=== PATIENT | female | born 1945 | race Caucasian/White ===

== ENCOUNTER → 2016-05-14 | Outpatient (CLI) | payer BC, MEDICARE ==
--- NOTE | 2016-05-14 13:49 | MM ---
Reason for exam: follow-up at short interval from prior study. Last mammogram was performed 7 months ago. History: Patient is postmenopausal, has history of high-risk lesion on a previous biopsy at age 68, and is nulliparous. Benign MG stereo VAD BX RT of the right breast, November 03, 2014. High risk MG stereo VAD BX RT of the right breast, November 09, 2013. Physical Findings: Nurse did not find any significant physical abnormalities on exam. MG 3D Diag Mammo W/Cad LT CC and MLO view(s) were taken of the left breast. Prior study comparison: October 27, 2015, bilateral MG 3d diag mammo w/cad [facility]. October 25, 2014, bilateral MG diagnostic mammo w CAD [facility]. There are scattered fibroglandular densities. Finding: There is a typically benign 3 mm equal density (isodense), oval mass in the left breast, 4 cm from the nipple. No significant changes in finding since October 27, 2015 and October 25, 2014. These results were verbally communicated with the patient and result sheet given to the patient on 05/14/16. ASSESSMENT: Benign, BI-RAD 2 RECOMMENDATION: Routine screening mammogram of both breasts in 6 months. Back on schedule for October 2016.
== END | disposition home or self-care (01) ==
LOC: RADMAMWWP 13:16
PROVIDERS: ATTEND Internal Medicine
DX: R92.8 Other abnormal and inconclusive findings on diagnostic imaging of breast (principal)
CPT/HCPCS: G0206; G0279

== ENCOUNTER → 2016-11-07 | Outpatient (CLI) | payer BC, MEDICARE ==
--- NOTE | 2016-11-08 08:54 | MM ---
Reason for exam: screening (asymptomatic). Last mammogram was performed 6 months ago. History: Patient is postmenopausal, has history of high-risk lesion on a previous biopsy at age 68, and is nulliparous. Benign MG stereo VAD BX RT of the right breast, November 03, 2014. High risk MG stereo VAD BX RT of the right breast, November 09, 2013. Physical Findings: A clinical breast exam by your physician is recommended on an annual basis and results should be correlated with mammographic findings. MG 3D Screening Mammo W/Cad Bilateral CC and MLO view(s) were taken. Prior study comparison: May 14, 2016, left breast MG 3d diag mammo w/cad LT. October 27, 2015, bilateral MG 3d diag mammo w/cad [facility]. The breast tissue is heterogeneously dense. This may lower the sensitivity of mammography. Stable benign calcifications. There is no discrete abnormality. No significant changes when compared with prior studies. ASSESSMENT: Benign, BI-RAD 2 RECOMMENDATION: Routine screening mammogram of both breasts in 1 year.
== END | disposition home or self-care (01) ==
LOC: RADMAMWWP 07:21
PROVIDERS: ATTEND Internal Medicine
DX: Z12.31 Encounter for screening mammogram for malignant neoplasm of breast (principal)
CPT/HCPCS: 77063; G0202

== ENCOUNTER → 2017-11-08 | Outpatient (CLI) | payer BC, MEDICARE ==
--- NOTE | 2017-11-11 12:27 | MM ---
Reason for exam: screening (asymptomatic). Last mammogram was performed 1 year ago. History: Patient is postmenopausal, has history of high-risk lesion on a previous biopsy at age 68, and is nulliparous. Benign MG stereo VAD BX RT of the right breast, November 03, 2014. High risk MG stereo VAD BX RT of the right breast, November 09, 2013. Physical Findings: A clinical breast exam by your physician is recommended on an annual basis and results should be correlated with mammographic findings. MG 3D Screening Mammo W/Cad Bilateral CC and MLO view(s) were taken. Prior study comparison: November 07, 2016, bilateral MG 3d screening mammo w/cad. May 14, 2016, left breast MG 3d diag mammo w/cad LT. There are scattered fibroglandular densities. Finding: There is a 4 mm equal density (isodense), oval mass located 4 cm from the nipple in the middle position of the left breast. Previous mammotome biopsy in the right breast x 2. New finding since November 07, 2016 and May 14, 2016. ASSESSMENT: Incomplete: need additional imaging evaluation, BI-RAD 0 RECOMMENDATION: Ultrasound of the left breast. [facility] will attempt to contact patient to return for ultrasound.
== END | disposition home or self-care (01) ==
LOC: RADMAMWWP 08:28
PROVIDERS: ATTEND Internal Medicine
DX: Z12.31 Encounter for screening mammogram for malignant neoplasm of breast (principal); Z80.3 Family history of malignant neoplasm of breast
CPT/HCPCS: 77063; 77067

== ENCOUNTER → 2017-11-14 | Outpatient (CLI) | payer BC, MEDICARE ==
--- NOTE | 2017-11-14 09:28 | USB ---
Reason for exam: additional evaluation requested from abnormal screening. History: Patient is postmenopausal, has history of high-risk lesion on a previous biopsy at age 68, and is nulliparous. Benign MG stereo VAD BX RT of the right breast, November 03, 2014. High risk MG stereo VAD BX RT of the right breast, November 09, 2013. Physical Findings: Nurse did not find any significant physical abnormalities on exam. US Breast Workup LT Left limited breast ultrasound including focal area of concern, retroareolar and axilla demonstrates a 0.4 x 0.3 x 0.4cm mixed lesion at 6:30. These results were verbally communicated with the patient and result sheet given to the patient on 11/14/17. ASSESSMENT: Probably benign, BI-RAD 3 RECOMMENDATION: Follow-up diagnostic mammogram and ultrasound of the left breast in 6 months.
== END | disposition home or self-care (01) ==
LOC: RADUSWWP 06:48
PROVIDERS: ATTEND Internal Medicine
DX: R92.8 Other abnormal and inconclusive findings on diagnostic imaging of breast (principal)

== ENCOUNTER → 2018-05-19 | Outpatient (CLI) | payer BC, MEDICARE ==
--- NOTE | 2018-05-20 09:55 | MM ---
Reason for exam: follow-up at short interval from prior study. Last mammogram was performed 6 months ago. History: Patient is postmenopausal, has history of high-risk lesion on a previous biopsy at age 68, and is nulliparous. Benign MG stereo VAD BX RT of the right breast, November 03, 2014. High risk MG stereo VAD BX RT of the right breast, November 09, 2013. Physical Findings: Nurse did not find any significant physical abnormalities on exam. MG 3D Diag Mammo W/Cad LT CC and MLO view(s) were taken of the left breast. Prior study comparison: November 08, 2017, bilateral MG 3d screening mammo w/cad. November 07, 2016, bilateral MG 3d screening mammo w/cad. There are scattered fibroglandular densities. Stable benign calcifications. Stable nodule left breast. These results were verbally communicated with the patient and result sheet given to the patient on 05/19/18. ASSESSMENT: Probably benign, BI-RAD 3 RECOMMENDATION: Follow-up diagnostic mammogram of both breasts in 6 months.
--- NOTE | 2018-05-20 09:57 | USB ---
Reason for exam: follow-up at short interval from prior study. History: Patient is postmenopausal, has history of high-risk lesion on a previous biopsy at age 68, and is nulliparous. Benign MG stereo VAD BX RT of the right breast, November 03, 2014. High risk MG stereo VAD BX RT of the right breast, November 09, 2013. US Breast LT Left complete breast ultrasound includes all four quadrants, the retroareolar region and axilla. Finding demonstrates a 0.5 x 0.4 x 0.5cm lesion too small to characterize at 7 o'clock. These results were verbally communicated with the patient and result sheet given to the patient on 05/19/18. ASSESSMENT: Probably benign, BI-RAD 3 RECOMMENDATION: Follow-up diagnostic mammogram of both breasts in 6 months. Ultrasound of the left breast in 6 months.
== END | disposition home or self-care (01) ==
LOC: RADMAMWWP 08:21
PROVIDERS: ATTEND Internal Medicine
DX: R92.8 Other abnormal and inconclusive findings on diagnostic imaging of breast (principal)
CPT/HCPCS: 77061; 77065

== ENCOUNTER → 2018-11-10 | Outpatient (CLI) | payer BC, MEDICARE ==
--- NOTE | 2018-11-11 08:59 | MM ---
Reason for exam: follow-up at short interval from prior study. Last mammogram was performed 6 months ago. History: Patient is postmenopausal, has history of high-risk lesion on a previous biopsy at age 68, and is nulliparous. Benign MG stereo VAD BX RT of the right breast, November 03, 2014. High risk MG stereo VAD BX RT of the right breast, November 09, 2013. Physical Findings: Nurse did not find any significant physical abnormalities on exam. MG 3D Diag Mammo W/Cad [facility] Bilateral CC and MLO view(s) were taken. Prior study comparison: May 19, 2018, left breast MG 3d diag mammo w/cad LT. November 08, 2017, bilateral MG 3d screening mammo w/cad. The breast tissue is heterogeneously dense. This may lower the sensitivity of mammography. Stable benign calcifications. Previous mammotome biopsy in the right breast. No significant new findings when compared with previous films. These results were verbally communicated with the patient and result sheet given to the patient on 11/10/18. ASSESSMENT: Benign, BI-RAD 2 RECOMMENDATION: Routine screening mammogram of both breasts in 1 year.
== END | disposition home or self-care (01) ==
LOC: RADMAMWWP 06:41
PROVIDERS: ATTEND Internal Medicine
DX: R92.8 Other abnormal and inconclusive findings on diagnostic imaging of breast (principal)
CPT/HCPCS: 77062; 77066

== ENCOUNTER → 2019-11-11 | Outpatient (CLI) | payer BC, MEDICARE ==
--- NOTE | 2019-11-11 10:59 | MM ---
Reason for exam: screening (asymptomatic). Last mammogram was performed 1 year ago. History: Patient is postmenopausal, has history of high-risk lesion on a previous biopsy at age 68, and is nulliparous. Benign MG stereo VAD BX RT of the right breast, November 03, 2014. High risk MG stereo VAD BX RT of the right breast, November 09, 2013. Took hormonal contraceptives for 1 year. Physical Findings: A clinical breast exam by your physician is recommended on an annual basis and results should be correlated with mammographic findings. MG 3D Screening Mammo W/Cad Bilateral CC and MLO view(s) were taken. Prior study comparison: November 10, 2018, bilateral MG 3d diag mammo w/cad [facility]. May 19, 2018, left breast MG 3d diag mammo w/cad LT. There are scattered fibroglandular densities. There are benign appearing round calcifications bilaterally. There is chronic nodularity bilaterally, greater in the left breast. There is no discrete abnormality. ASSESSMENT: Benign, BI-RAD 2 RECOMMENDATION: Routine screening mammogram of both breasts in 1 year.
== END | disposition home or self-care (01) ==
LOC: RADMAMWWP 08:37
PROVIDERS: ATTEND Internal Medicine
DX: Z12.31 Encounter for screening mammogram for malignant neoplasm of breast (principal)
CPT/HCPCS: 77063; 77067

== ENCOUNTER → 2020-09-28 | Outpatient (CLI) | payer BC, MEDICARE ==
--- NOTE | 2020-09-28 14:16 | MM ---
Reason for exam: screening (asymptomatic). Last mammogram was performed 11 months ago. History: Patient is postmenopausal, has history of high-risk lesion on a previous biopsy at age 68, and is nulliparous. Benign MG stereo VAD BX RT of the right breast, November 03, 2014. High risk MG stereo VAD BX RT of the right breast, November 09, 2013. Took hormonal contraceptives for 1 year. Physical Findings: A clinical breast exam by your physician is recommended on an annual basis and results should be correlated with mammographic findings. MG 3D Screening Mammo W/Cad Bilateral CC and MLO view(s) were taken. CV view(s) were taken of the left breast. Prior study comparison: November 11, 2019, bilateral MG 3d screening mammo w/cad. November 10, 2018, bilateral MG 3d diag mammo w/cad [facility]. May 19, 2018, left breast MG 3d diag mammo w/cad LT. There are scattered fibroglandular densities. There are benign appearing round linear calcifications bilaterally. Previous mammotome biopsy in the right breast x 2. There is chronic nodularity in the left breast. There is no discrete abnormality. ASSESSMENT: Benign, BI-RAD 2 RECOMMENDATION: Routine screening mammogram of both breasts in 1 year.
== END | disposition home or self-care (01) ==
LOC: RADMAMWWP 07:25
PROVIDERS: ATTEND Family Medicine
DX: Z12.31 Encounter for screening mammogram for malignant neoplasm of breast (principal); Z78.0 Asymptomatic menopausal state
CPT/HCPCS: 77063; 77067

== ENCOUNTER 2020-11-09 11:05 | Day surgery (SDC) | payer BC, MEDICARE ==
[2020-11-08 08:19] VITALS: BMI 30.9
[~2020-11-09 11:05] MED LIST: LACTATED RINGERS 1,000 ML IV SCH; LIDOCAINE 1% (10MG/ML) FOR IV START INTRADERMA PRN
[2020-11-09 11:43] VITALS: TEMP 98.7
[2020-11-09] MEDS ORDERED: PROPOFOL 10 MG/ML 20 ML VIAL IV ONE (12:28)
--- NOTE | 2020-11-09 12:42 | P.PCN ---
Date of Procedure: 11/09/20 Procedure(s) Performed: BRIEF HISTORY: Patient is a 75-year-old pleasant white female scheduled for an elective colonoscopy as a part of screening for colon rectal neoplasia. PROCEDURE PERFORMED: Colonoscopy with biopsy. PREOPERATIVE DIAGNOSIS: Screening for colon cancer. IV sedation per Anesthesia. PROCEDURE: After informed consent was obtained, the patient, was brought into the endoscopy unit. IV sedation was administered by Anesthesia under continuous monitoring. Digital rectal examination was normal. Initially the Olympus CF-160 flexible video colonoscope was then inserted in the rectum, gradually advanced into the cecum without any difficulty. Careful examination was performed as the scope was gradually being withdrawn. Ileocecal valve and the appendiceal orifice were visualized and appeared normal. Prep was excellent. Mucosa of the cecum, appeared normal. In the Ascending colon there was a 3 mm polyp that was removed by cold biopsy. Rest of the ascending colon, transverse colon, descending colon, sigmoid colon, and rectum appeared normal. Retroflexion was performed in the rectum and no lesions were seen. The patient tolerated the procedure well. IMPRESSION: 3 mm ascending colon polyp status post biopsy Rest of the colon appeared normal RECOMMENDATIONS: Findings of this examination were discussed with the patient as well as his family. She was advised to follow with the biopsy results. If the biopsy reveals adenoma she can have a repeat colonoscopy in 5 years.
[2020-11-09 12:47] VITALS: RESP 16
[2020-11-09 12:56] VITALS: BP 137/86; PULSE 71
== END 2020-11-09 13:15 | disposition home or self-care (01) ==
LOC: ORWHC2ENDO 11:05
PROVIDERS: ATTEND Internal Medicine Gastroenterology
DX: Z12.11 Encounter for screening for malignant neoplasm of colon (principal); D12.2 Benign neoplasm of ascending colon; E78.5 Hyperlipidemia, unspecified; E03.9 Hypothyroidism, unspecified; Z79.890 Hormone replacement therapy; Z88.0 Allergy status to penicillin; Z88.2 Allergy status to sulfonamides
CPT/HCPCS: 45380; 45385; J2704; 88305

== ENCOUNTER → 2021-09-29 | Outpatient (CLI) | payer BC, MEDICARE ==
--- NOTE | 2021-10-02 18:41 | MM ---
Reason for Exam: Screening (asymptomatic). Last screening mammogram was performed 12 month(s) ago. Patient History: Menarche at age 14. Patient has no children. Postmenopausal. Patient used Hormonal Contraceptives for 1 year. 11/03/2014, Benign Core Biopsy on the right side. 11/09/2013, High risk Core Biopsy on the right side. Risk Values: Chelsea 5 year model risk: 2.9%. NCI Lifetime model risk: 6.7%. Prior Study Comparison: 11/10/2018 Bilateral Diagnostic Mammogram, [facility]. 11/11/2019 Bilateral Screening Mammogram, [facility]. 09/28/2020 Bilateral Screening Mammogram, [facility]. Tissue Density: There are scattered fibroglandular densities. Findings: Analyzed By CAD. A couple surgical clips right breast. Chronic nodularity central left breast. Benign vascular and secretory as well as a few scattered round/punctate calcifications in the right breast. No significant change from prior exams. Overall Assessment: Benign, BI-RAD 2 Management: Screening Mammogram of both breasts in 1 year. 1. A clinical breast exam by your physician is recommended on an annual basis and results should be correlated with mammographic findings. 2. The patient should continue monthly breast exams. 3. This exam should not preclude additional follow-up of suspicious palpable abnormalities. Electronically signed and approved by: Apoorva Ward M.D. Radiologist
== END | disposition home or self-care (01) ==
LOC: RADMAMWWP 07:24
PROVIDERS: ATTEND Family Medicine
DX: Z12.31 Encounter for screening mammogram for malignant neoplasm of breast (principal)
CPT/HCPCS: 77063; 77067

== ENCOUNTER → 2022-10-01 | Outpatient (CLI) | payer BC, MEDICARE ==
--- NOTE | 2022-10-02 14:39 | MM ---
Reason for Exam: Screening (asymptomatic). Last screening mammogram was performed 12 month(s) ago. Patient History: Menarche at age 14. Patient has no children. Postmenopausal. Patient used Hormonal Contraceptives for 1 year. 11/03/2014, Benign Core Biopsy on the right side. 11/09/2013, High risk Core Biopsy on the right side. Risk Values: Chelsea 5 year model risk: 2.9%. NCI Lifetime model risk: 6.3%. Prior Study Comparison: 11/11/2019 Bilateral Screening Mammogram, [facility]. 09/28/2020 Bilateral Screening Mammogram, [facility]. 09/29/2021 Bilateral MG 3D screening mammo w/cad, [facility]. Tissue Density: There are scattered fibroglandular densities. Findings: Analyzed By CAD. There is no suspicious group of microcalcifications within either breast. Surgical clips are identified within the right breast. Chronic nodularity within left breast. Benign-appearing calcifications within both breasts. No suspicious new mass within the left breast. Asymmetry demonstrated posteriorly centrally in the right breast only on the MLO view. This may represent a lymph node. Overall Assessment: Incomplete: need additional imaging evaluation, BI-RAD 0 Management: Diagnostic Mammogram of the right breast. A clinical breast exam by your physician is recommended on an annual basis and results should be correlated with mammographic findings. [facility] will attempt to contact patient to return for supplemental views and ultrasound if indicated. Note on Chelsea scores and lifetime risk: 1. A Chelsea score greater than 3% is considered moderate risk. If this is the case, consider specialist referral to assess eligibility for a risk reducing agent. If overall lifetime risk for the development of breast cancer is 20% or higher, the patient may qualify for future screening with alternating mammogram and breast MRI. Electronically signed and approved by: Blanco Jara D.O.
== END | disposition home or self-care (01) ==
LOC: RADMAMWWP 09:41
PROVIDERS: ATTEND Family Medicine
DX: Z12.31 Encounter for screening mammogram for malignant neoplasm of breast (principal); Z78.0 Asymptomatic menopausal state
CPT/HCPCS: 77063; 77067

== ENCOUNTER → 2022-10-05 | Outpatient (CLI) | payer BC, MEDICARE ==
--- NOTE | 2022-10-05 11:33 | USB ---
Reason for Exam: Additional evaluation requested from abnormal screening. Patient History: Menarche at age 14. Patient has no children. Postmenopausal. Patient used Hormonal Contraceptives for 1 year. 11/03/2014, Benign Core Biopsy on the right side. 11/09/2013, High risk Core Biopsy on the right side. Risk Values: Chelsea 5 year model risk: 2.9%. NCI Lifetime model risk: 6.3%. Technique: Method: Targeted. Prior Study Comparison: 09/28/2020 Bilateral Screening Mammogram, [facility]. 09/29/2021 Bilateral MG 3D screening mammo w/cad, [facility]. 10/01/2022 Bilateral MG 3D screening mammo w/cad, [facility]. Findings: The lateral section of the breast of the right breast, the axilla of the right breast and the retroareolar of the right breast were scanned. At the 8:00 position 12 cm from the nipple adjacent to the chest wall is a hypoechoic area with a hyper anechoic central core with vascularity compatible with a lymph node. This lymph node can be compatible with the finding on the mammogram and appears benign. Note is made of a prominent right axillary tail lymph node with a thickened cortex. The patient has had a recent pneumonia vaccination in the contralateral arm. Short-term follow-up in 6 months is recommended. Overall Assessment: Probably benign, BI-RAD 3 Management: Diagnostic Breast Ultrasound of the right breast in 6 months. A clinical breast exam by your physician is recommended on an annual basis and results should be correlated with mammographic findings. This exam should not preclude additional follow-up of suspicious palpable abnormalities. Results were given to the patient verbally at the time of exam. Electronically signed and approved by: Kev Deluca D.O. Radiologis
--- NOTE | 2022-10-05 17:56 | MM ---
Reason for Exam: Additional evaluation requested from abnormal screening. Last screening mammogram was performed less than 1 month ago. Patient History: Menarche at age 14. Patient has no children. Postmenopausal. Patient used Hormonal Contraceptives for 1 year. 11/03/2014, Benign Core Biopsy on the right side. 11/09/2013, High risk Core Biopsy on the right side. Risk Values: Chelsea 5 year model risk: 2.9%. NCI Lifetime model risk: 6.3%. Prior Study Comparison: 05/14/2016 Left Diagnostic Mammogram, [facility]. 11/07/2016 Bilateral Screening Mammogram, [facility]. 11/08/2017 Bilateral Screening Mammogram, [facility]. 05/19/2018 Left Diagnostic Mammogram, [facility]. 11/10/2018 Bilateral Diagnostic Mammogram, [facility]. 11/11/2019 Bilateral Screening Mammogram, [facility]. 09/28/2020 Bilateral Screening Mammogram, [facility]. 09/29/2021 Bilateral MG 3D screening mammo w/cad, [facility]. 10/01/2022 Bilateral MG 3D screening mammo w/cad, [facility]. Tissue Density: Right: There are scattered fibroglandular densities. Findings: Analyzed By CAD. The pattern appears stable. There is a persistent high density circumscribed area adjacent to the pectoralis muscle barely visualized, CCL view and evident unilateral knee compression view. This area is persistent and additional evaluation with ultrasound is recommended. Overall Assessment: Incomplete: need additional imaging evaluation, BI-RAD 0 Management: Diagnostic Breast Ultrasound of the right breast. A negative mammogram report should not preclude additional follow up of suspicious palpable abnormalities. Patient should continue monthly self breast exam. A clinical breast exam by your physician is recommended on an annual basis and results should be correlated with mammographic findings. Electronically signed and approved by: Kev Deluca D.O. Radiologis
== END | disposition home or self-care (01) ==
LOC: RADMAMWWP 09:57
PROVIDERS: ATTEND Family Medicine
DX: R92.8 Other abnormal and inconclusive findings on diagnostic imaging of breast (principal); Z78.0 Asymptomatic menopausal state
CPT/HCPCS: 77061; 77065

== ENCOUNTER → 2023-04-08 | Outpatient (CLI) | payer BC, MEDICARE ==
--- NOTE | 2023-04-08 07:51 | USB ---
Reason for Exam: Follow-up at short interval from prior study. Patient History: Menarche at age 14. Patient has no children. Postmenopausal. Patient used Hormonal Contraceptives for 1 year. 11/03/2014, Benign Core Biopsy on the right side. 11/09/2013, High risk Core Biopsy on the right side. Risk Values: Chelsea 5 year model risk: 2.9%. NCI Lifetime model risk: 6.3%. Technique: Method: Targeted. Prior Study Comparison: 09/29/2021 Bilateral MG 3D screening mammo w/cad, [facility]. 10/01/2022 Bilateral MG 3D screening mammo w/cad, [facility]. 10/05/2022 Right US breast workup limited RT, [facility]. 10/05/2022 Right MG 3D work up w/cad RT, [facility]. Findings: The upper inner quadrant of the right breast, the axilla of the right breast and the retroareolar of the right breast were scanned. There are a couple of lymph nodes within the right axillary region. One has slightly thickened cortex 0.343 cm. Normal less than 0.3 cm. This is diminished from 0.468 cm measurement. There is a lymph node at the 8:00 position located 12 cm in the nipple. Vascular hilum is identified. This was present previously. Overall Assessment: Probably benign, BI-RAD 3 Management: Screening Mammogram of the left breast. Screening Mammogram of both breasts in 6 months. A clinical breast exam by your physician is recommended on an annual basis and results should be correlated with mammographic findings. This exam should not preclude additional follow-up of suspicious palpable abnormalities. Results were given to the patient verbally at the time of exam. Electronically signed and approved by: Kev Deluca D.O. Radiologis
== END | disposition home or self-care (01) ==
LOC: RADUSWWP 07:23
PROVIDERS: ATTEND Family Medicine
DX: R92.8 Other abnormal and inconclusive findings on diagnostic imaging of breast (principal); Z78.0 Asymptomatic menopausal state

== ENCOUNTER → 2023-10-09 | Outpatient (CLI) | payer BC, MEDICARE ==
--- NOTE | 2023-10-10 10:37 | MM ---
Reason for Exam: Screening (asymptomatic). Last screening mammogram was performed 12 month(s) ago. Patient History: Menarche at age 14. Patient has no children. Postmenopausal. Patient used Hormonal Contraceptives for 1 year. 11/03/2014, Benign Core Biopsy on the right side. 11/09/2013, High risk Core Biopsy on the right side. Risk Values: Chelsea 5 year model risk: 2.9%. NCI Lifetime model risk: 5.9%. Prior Study Comparison: 09/29/2021 Bilateral MG 3D screening mammo w/cad, [facility]. 10/01/2022 Bilateral MG 3D screening mammo w/cad, [facility]. 10/05/2022 Right MG 3D work up w/cad RT, [facility]. Tissue Density: There are scattered areas of fibroglandular density. Findings: Analyzed By CAD. There is no suspicious group of microcalcifications or new suspicious mass in either breast. Overall Assessment: Benign, BI-RAD 2 Management: Screening Mammogram of both breasts in 1 year. . Patient should continue monthly self-breast exams. A clinical breast exam by your physician is recommended on an annual basis. This exam should not preclude additional follow-up of suspicious palpable abnormalities. Note on Chelsea scores and lifetime risk: 1. A Chelsea score greater than 3% is considered moderate risk. If this is the case, consider specialist referral to assess eligibility for a risk reducing agent. 2. If overall lifetime risk for the development of breast cancer is 20% or higher, the patient may qualify for future screening with alternating mammogram and breast MRI. Electronically signed and approved by: Dariel Frankel M.D. Radiologis
== END | disposition home or self-care (01) ==
LOC: RADMAMWWP 07:03
PROVIDERS: ATTEND Family Medicine
DX: Z12.31 Encounter for screening mammogram for malignant neoplasm of breast (principal); Z78.0 Asymptomatic menopausal state
CPT/HCPCS: 77063; 77067

== ENCOUNTER → 2024-10-19 | Outpatient (CLI) | payer BC, MEDICARE ==
--- NOTE | 2024-10-19 08:59 | MM ---
Reason for Exam: Screening (asymptomatic). Last screening mammogram was performed 12 month(s) ago. Patient History: Menarche at age 14. Patient has no children. Postmenopausal. Patient used Hormonal Contraceptives for 1 year. 11/03/2014, Benign Core Biopsy on the right side. 11/09/2013, High risk Core Biopsy on the right side. Risk Values: Chelsea 5 year model risk: 2.9%. NCI Lifetime model risk: 5.5%. Prior Study Comparison: 10/01/2022 Bilateral MG 3D screening mammo w/cad, [facility]. 10/05/2022 Right MG 3D work up w/cad RT, [facility]. 10/09/2023 Bilateral MG 3D screening mammo w/cad, [facility]. Tissue Density: There are scattered areas of fibroglandular density. Findings: Analyzed By CAD. 2 microclip right breast from prior biopsies. Benign secretory, vascular, and round/punctate calcifications, right greater than left, are redemonstrated. There is no suspicious group of microcalcifications or new suspicious mass in either breast. Overall Assessment: Benign, BI-RAD 2 Management: Screening Mammogram of both breasts in 1 year. Patient should continue monthly self-breast exams. A clinical breast exam by your physician is recommended on an annual basis. This exam should not preclude additional follow-up of suspicious palpable abnormalities. Note on Chelsea scores and lifetime risk: 1. A Chelsea score greater than 3% is considered moderate risk. If this is the case, consider specialist referral to assess eligibility for a risk reducing agent. 2. If overall lifetime risk for the development of breast cancer is 20% or higher, the patient may qualify for future screening with alternating mammogram and breast MRI. [facility], , 10/19/2024 8:56 AM. Electronically signed and approved by: Apoorva Ward M.D. Radiologist
== END | disposition home or self-care (01) ==
LOC: RADMAMWWP 06:50
PROVIDERS: ATTEND Family Medicine
DX: Z12.31 Encounter for screening mammogram for malignant neoplasm of breast (principal); R92.323 Mammographic fibroglandular density, bilateral breasts; Z78.0 Asymptomatic menopausal state; Z92.0 Personal history of contraception; R92.1 Mammographic calcification found on diagnostic imaging of breast
CPT/HCPCS: 77063; 77067